=== PATIENT | male | born 1970 | race Caucasian/White ===

== ENCOUNTER 2017-08-09 03:35 | Emergency (ER) | payer OTHER ==
[~2017-08-09] VITALS: Ht 177.8 cm; Wt 86.2 kg
[2017-08-09 03:35] VITALS: BP 110/71
--- NOTE | 2017-08-09 03:35 | NUR ---
PT [facility] BLS. TAKEN TO BED 10
--- NOTE | 2017-08-09 04:06 | NUR ---
PT TAKEN TO CT
[2017-08-09] MEDS ORDERED: GEMF600T5 PO (04:07)
[2017-08-09] MEDS ORDERED: ATEN25TA2 PO (04:07)
[2017-08-09] MEDS ORDERED: VERA240C3 PO (04:07)
[2017-08-09] MEDS ORDERED: HYDR-3298 PO (04:07)
--- NOTE | 2017-08-09 04:08 | NUR ---
PATIENT PRESENTS TO ED WITH BIBA FOUND BY FAMILY ON THE FLOOR ALOC. FAMILY STATED HE HAD A SEIZURE. SEIZURE PRECAUTION WAS IMPLEMENTED. FAMILY IS AT BEDSIDE. DENIES N/V/D; SKIN IS PINK/WARM/DRY.EVEN AND STEADY GAIT; LUNGS CLEAR BL; HR EVEN AND REGULAR; PT DENIES ANY FEVER, CP, SOB, OR COUGH AT THIS TIME; PATIENT STATES PAIN OF 0/10 AT THIS TIME; VSS; PATIENT POSITIONED FOR COMFORT; HOB ELEVATED; BEDRAILS UP X2; BED DOWN. ER MD MADE AWARE OF PT STATUS.
[2017-08-09 04:28] LABS: BASOPHILS # (AUTO) 0.1 K/uL (0.00-0.22); BASOPHILS % (AUTO) 1.3 % (0.0-2.0); EOSINOPHILS # (AUTO) 0.2 K/uL (0-0.4); EOSINOPHILS % (AUTO) 2.5 % (0.0-4.0); HEMOGLOBIN 13.7 g/dL (12.0-18.0); LYMPHOCYTES % (AUTO) 27.1 % (20.5-51.1); MEAN CORPUSCULAR HEMOGLOBIN 29 pg (27-31); MEAN CORPUSCULAR HGB CONC 34 g/dL (33-37); MEAN CORPUSCULAR VOLUME 85.7 fL (80-94); MONOCYTES # (AUTO) 0.6 K/uL (0.8-1.0); MONOCYTES % (AUTO) 8.3 % (1.7-9.3); NEUTROPHILS # (AUTO) 4.6 K/uL (1.8-7.7); NEUTROPHILS % (AUTO) 60.8 % (42.2-75.2); PLATELET COUNT (AUTO) 308 K/uL (140-450); RED BLOOD CELL COUNT(AUTO) 4.66 MIL/uL (4.20-6.10); RED CELL DISTRIBUTION WIDTH 13.2 % (11.6-13.7); WHITE BLOOD COUNT (AUTO) 7.5 K/uL (4.8-10.8)
--- NOTE | 2017-08-09 04:32 | NUR ---
PT RETURN FROM CT
[2017-08-09 04:37] LABS: CARBON DIOXIDE 23.3 mmol/L (21-32); CREATININE 1.1 mg/dL (0.7-1.3); POTASSIUM 3.3 mmol/L (3.5-5.1)
--- NOTE | 2017-08-09 05:08 | NUR ---
PATIENT IS RESTING AND FAMILY IS AT BEDSIDE
--- NOTE | 2017-08-09 05:22 | NUR ---
Dr. Desai re-evaluating patient at bedside.
[2017-08-09 05:26] LABS: BARBITURATE, URINE NEG. ng/ml (NEG <=200); BENZODIAZEPINE, URINE NEG. ng/mL (NEG <=200); CANNABINOID, URINE NEG. ng/mL (NEG <=50); COCAINE, URINE NEG. ng/mL (NEG <=300); OPIATE, URINE NEG. ng/mL (NEG <=2000); PHENCYCLIDINE SCREEN,URINE NEG. ng/mL (NEG <=25)
[2017-08-09] MEDS ORDERED: ATENOLOL 25 MG TAB PO ONE (05:45)
[2017-08-09] MEDS ORDERED: NACL 0.9% 1,000 ML IV ONE (05:45)
--- NOTE | 2017-08-09 05:47 | NUR ---
PT TOOK HOME MEDS ATENOLOL 25MG MD WAS NOTIFIED.
--- NOTE | 2017-08-09 06:20 | NUR ---
PATIENT IS RESTING AND FAMILY AT BEDSIDE.
[2017-08-09 07:36] VITALS: BP 112/68
--- NOTE | 2017-08-09 07:37 | NUR ---
Patient discharged with v/s stable. Written and verbal after care instructions given and explained. Patient verbalized understanding. Ambulatory with steady gait. All questions addressed prior to discharge. Advised to follow up with PMD.
== END 2017-08-09 07:37 | disposition home or self-care (01) ==
LOC: MED 03:35
DX: R56.9 Unspecified convulsions (principal)
CPT/HCPCS: 36415; 70450; 71045; 80048; 80305; 83735; 84484; 85025; 85379; 93005; 96360; 99285; J7030; Q0092